=== PATIENT | female | born 1935 | race Caucasian/White ===

== ENCOUNTER 2017-02-02 06:21 | Emergency (ER) | payer MEDICARE, OTHER, MEDICAID ==
[~2017-02-02 06:21] MED LIST: Aspirin 81 MG Tab.Chew PO ONE
[2017-02-02] MEDS: Nitroglycerin 0.4 MG Tab.SL SL PRN ×2 (06:23→06:28)
[2017-02-02] MEDS ORDERED: Morphine 2 MG/ML Syringe IVPUSH ONE ×3 (06:43→10:12)
--- NOTE | 2017-02-02 06:58 | EDM.PDOC ---
ED HISTORY OF PRESENT ILLNESS - General Chief Complaint: Chest Pain Stated Complaint: CHEST PAIN Time Seen by Provider: 02/02/17 06:53 Source of Information: Reports: Patient, Family History Limitations: Reports: Other (Hard of Hearing) - History of Present Illness INITIAL COMMENTS - FREE TEXT/NARRATIVE: Patient presents with friend C/O of chest pain and pressure since about 0300 am this morning. She indicates she was awakened by the pressure in her chest she states the pressure was constant midsternal without radiation. She denies SOB, cough, diaphoresis or syncope. The pain was not relieved by position changes. She states she waited at home before calling friend to bring her to the ER around 0615 this am. She is ambulatory with recent naren replacement surgery on the 15 of January. The course of the surgery and post operative period has been uneventful. Symptom Onset Date: 02/02/17 Symptom Onset Time: 03:00 Timing/Duration: Reports: Hour(s): (3 hours), Sudden onset Severity: mild Location, General: Reports: chest, radiates to: (Posterior neck region) Quality: Reports: Pressure Improves with: Reports: None Worsens with: Reports: None Context, General: Reports: Other (Recent hip replacement therapy) Associated Symptoms (General): Reports: chest pain. Denies: cough, diaphoresis , fever/chills, loss of appetite, nausea/vomiting, shortness of breath Treatments PULP DRIER: Reports: Acetaminophen, Aspirin, Other (see below) (Tramadol) - Related Data Allergies/ADRs: Allergies Allergy/AdvReac Type Severity Reaction Status Date / Time meperidine HCl [From Demerol] Allergy Airway Verified 02/02/17 06:59 Tightness Home Meds: Home Meds Acetaminophen [Tylenol] 650 mg PO Q4H PRN 02/02/17 [History] traMADol [Ultram] 50 mg PO Q4H PRN 02/02/17 [History] Past Medical History HEENT History: Reports: Hard of hearing, Impaired vision Other HEENT History: [place] and hearing aides at home. Cardiovascular History: Reports: Hypertension Respiratory History: Reports: None Gastrointestinal History: Reports: None Genitourinary History: Reports: None LMP (Approximate): Menopausal Musculoskeletal History: Reports: Back pain, chronic (Right hip rplacement), Osteoporosis Other Musculoskeletal History: hx of back pain and left shoulder pain, right knee and hip pain. Neurological History: Reports: None Psychiatric History: Reports: None Endocrine/Metabolic History: Reports: None Hematologic History: Reports: Idiopathic thrombocytopenia (Spleenectomy 2015) Immunologic History: Reports: None Oncologic (Cancer) History: Reports: None Dermatologic History: Reports: None - Infectious Disease History Infectious Disease History: Reports: MRSA - Past Surgical History Head Surgeries/Procedures: Reports: None HEENT Surgical History: Reports: None Cardiovascular Surgical History: Reports: None Respiratory Surgical History: Reports: None GI Surgical History: Reports: Cholecystectomy, Hernia repair/other Female Surgical History: Reports: section Endocrine Surgical History: Reports: None Neurological Surgical History: Reports: None Musculoskeletal Surgical History: Reports: Arthroscopic knee, Joint replacement , Knee replacement, Other (see below) (RIght Hip Replacement) Social & Family History - Family History Family Medical History: Noncontributory HEENT: Reports: None Cardiac: Reports: None Respiratory: Reports: None GI: Reports: None : Reports: None OBGYN: Reports: None Musculoskeletal: Reports: None Neurological: Reports: None Psychiatric: Reports: None Endocrine/Metabolic: Reports: None Hematologic: Reports: None Immunologic: Reports: None Dermatologic: Reports: None Oncologic: Reports: None Other Family History: Parents passed with old age. Son in drowning accident - Tobacco Use Smoking Status *Q: Never Smoker - Recreational Drug Use Recreational Drug Use: No ED ROS GENERAL - Review of Systems Review Of Systems: See Below Constitutional: Reports: no symptoms HEENT: Reports: No symptoms Respiratory: Reports: No Symptoms. Denies: Cough, Hemoptysis Cardiovascular: Reports: Chest pain. Denies: Edema, Orthopnea, Palpitations Endocrine: Reports: no symptoms GI/Abdominal: Reports: No symptoms : Reports: no symptoms Musculoskeletal: Reports: neck pain (Posterior), other (Recent right hip replacement-January 15 2017.) Skin: Reports: no symptoms Neurological: Reports: No Symptoms Psychiatric: Reports: No symptoms Hematologic/Lymphatic: Reports: no symptoms Immunologic: Reports: no symptoms ED EXAM, GENERAL - Physical Exam Exam: See Below Exam Limited By: No limitations General Appearance: alert, WD/WN, mild distress Eye Exam: bilateral eye: normal fundi, normal inspection, PERRL Ears: normal external exam, normal canal, hearing loss Ear Exam: bilateral ear: auricle normal, canal normal Nose: normal inspection, normal mucosa, no blood Throat/Mouth: Normal inspection, Normal lips, Normal voice, No airway compromise Head: atraumatic, normocephalic Neck: normal inspection, supple, non-tender, full range of motion (Posterior neck pain ) Respiratory/Chest: no respiratory distress, lungs clear, normal breath sounds, no accessory muscle use, chest non-tender. No: respiratory distress, decreased breath sounds, rales, wheezing Cardiovascular: normal peripheral pulses, regular rate, rhythm, no edema, no gallop Peripheral Pulses: 2+: carotid (L), carotid (R), brachial (L), brachial (R), radial (L), radial (R), femoral (L), femoral (R), popliteal (L), popliteal (R), dorsalis pedis (L), dorsalis pedis (R) GI/Abdominal: normal bowel sounds, soft, non tender, no distention (Female) Exam: Deferred Rectal (Female) Exam: Deferred Back Exam: normal inspection Extremities: normal inspection, normal range of motion, non-tender, no pedal edema, normal capillary refill (Right lateral hip incision clean edges appoximated no drainage noted or redness) Neurological: alert, oriented, CN II-XII intact, normal cognition, no motor/ sensory deficits, abnormal gait (Walks with assist walker) EKG INTERPRETATION EKG Date: 02/02/17 Time: 06:30 Rhythm: NSR Course - Orders/Labs/Meds Orders: Active Orders 24 hr Category Date Time Status Chest 1V Frontal [CR] Stat Exams 02/02/17 06:40 Ordered BASIC METABOLIC PANEL,BMP [CHEM] Stat Lab 02/02/17 06:41 Ordered CBC WITH AUTO DIFF [HEME] Stat Lab 02/02/17 06:41 Ordered CREATINE KINASE,CK [CHEM] Stat Lab 02/02/17 06:41 Ordered D-DIMER QUANTITATIVE [COAG] Stat Lab 02/02/17 06:41 Ordered LACTATE DEHYDROGENASE,LDH [CHEM] Stat Lab 02/02/17 06:41 Ordered PROTIME MIXING STUDIES [REF] Stat Lab 02/02/17 06:41 Ordered PTT,PARTIAL THROMBOPLSTIN TIME [COAG] Stat Lab 02/02/17 06:41 Ordered TROPONIN I [CHEM] Stat Lab 02/02/17 06:41 Ordered Meds: Medications Discontinued Medications Generic Name Dose Route Start Last Admin Trade Name Solomonq PRN Reason Stop Dose Admin Aspirin 324 mg 02/02/17 06:18 Aspirin PO 02/02/17 06:19 ONETIME ONE Morphine Sulfate 2 mg 02/02/17 06:43 02/02/17 06:50 Morphine IVPUSH 02/02/17 06:44 2 mg ONETIME ONE Administration Nitroglycerin 0.4 mg 02/02/17 06:23 Nitrostat SL 02/02/17 06:34 Q5M PRN Chest Pain Departure - Departure Time of Disposition: 07:30 Disposition: Refer to Observation Condition: fair Clinical Impression: Atypical chest pain Forms: ED Department Discharge MLP Sign Off - Signature Requirements MLP Sign Off: No - Problem List & Annotations (1) Atypical chest pain SNOMED Code(s): 184243811 Code(s): R07.89 - OTHER CHEST PAIN Status: Acute - My Orders Last 24 Hours: My Active Orders 02/02/17 06:40 Chest 1V Frontal [CR] Stat 02/02/17 06:41 BASIC METABOLIC PANEL,BMP [CHEM] Stat CBC WITH AUTO DIFF [HEME] Stat CREATINE KINASE,CK [CHEM] Stat D-DIMER QUANTITATIVE [COAG] Stat LACTATE DEHYDROGENASE,LDH [CHEM] Stat PROTIME MIXING STUDIES [REF] Stat PTT,PARTIAL THROMBOPLSTIN TIME [COAG] Stat TROPONIN I [CHEM] Stat - Assessment/Plan Admission H&P: Please use this note as an admission H&P (Admit to observation) Last 24 Hours: My Active Orders 02/02/17 06:40 Chest 1V Frontal [CR] Stat 02/02/17 06:41 BASIC METABOLIC PANEL,BMP [CHEM] Stat CBC WITH AUTO DIFF [HEME] Stat CREATINE KINASE,CK [CHEM] Stat D-DIMER QUANTITATIVE [COAG] Stat LACTATE DEHYDROGENASE,LDH [CHEM] Stat PROTIME MIXING STUDIES [REF] Stat PTT,PARTIAL THROMBOPLSTIN TIME [COAG] Stat TROPONIN I [CHEM] Stat Assessment:: Atypical Chest Pain Plan: Cardiac workup WNL. Will admit to observation Telemetry for supportive care, pain control and cardiac workup with repeat cardiac enzymes.
[2017-02-02 07:09] LABS: CHLORIDE,CL 103 mEq/L (98-106); SODIUM,NA 140 mEq/L (136-145)
[2017-02-02] MEDS ORDERED: Iopamidol 755 Mg/ML 100 ML Bottle IVPUSH ONE (08:15)
[2017-02-02 08:29] VITALS: BP 121/61
[2017-02-02] MEDS ORDERED: Acetaminophen 500 MG Tab PO ONE (10:38)
[2017-02-02] MEDS ORDERED: Acetaminophen 500 MG Tab ONE (10:39)
== END 2017-02-02 10:42 ==
LOC: CC.ED 06:21
DX: R07.89 Other chest pain (principal); M54.2 Cervicalgia; I10 Essential (primary) hypertension; Z96.641 Presence of right artificial hip joint; Z88.8 Allergy status to other drugs, medicaments and biological substances; Z90.49 Acquired absence of other specified parts of digestive tract; Z98.890 Other specified postprocedural states
CPT/HCPCS: 36415; 71010; 80048; 82550; 83615; 84484; 85025; 85379; 85610; 85730; 86140; 93005; 96374; 96376; 99285; A9270; J2270; 93010